=== PATIENT | female | born 1965 ===

== ENCOUNTER 2016-07-05 14:10 | Emergency (ER) | payer MEDICAID ==
[~2016-07-05] VITALS: Ht 160 cm; Wt 61.4 kg
[2016-07-05 14:13] VITALS: BP 162/98; PULSE 98; RESP 18; O2SAT 97
--- NOTE | 2016-07-05 14:30 | ED.REPORT ---
HPI-Back Pain 40 and Over Date of Service Jul 05, 2016 ED Provider: History of Present Illness: back pain, helping sister move, heard a noise in back, no fall, just lifting [place] needs primary care, hx of back problems. 04/03, can't take any ibuprofen Nursing Notes Stated Complaint: BACK/HIP PAIN Chief Complaint: Back Pain or Injury Allergies: Coded Allergies: ibuprofen (Verified Allergy, Intermediate, SWELLING, 07/05/16) Penicillins (Verified Allergy, Mild, RASH, 07/05/16) General Time Seen by MD: 14:30 Chief Complaint Lumbar pain Hx Obtained From: Patient Sudden in Onset?: Yes Past Medical History Past Medical History Denies: Asthma, Diabetes mellitus Past Surgical History denies Smoking History Current Every Day Smoker (2 cig a day for 35 years) Social History Alcohol Use: Denies alcohol use Drug Use: Denies drug use Occupation no work or school at this time 07/05/2016 Review of Systems Basic Review of Systems Eyes: Vision NL, No discharge ENT: Hearing NL, No pain, No nasal congestion, No pharyngeal pain Hematologic: No bleeding, No bruising Endocrine: No cold intolerance, No heat intolerance, No weight gain, No weight loss Skin: No bruising, No rash, No itch Allergy / Immune: No allergy Psychiatric: Normal thought content Physical Exam Initial Vital Signs Vital Signs (First) Date Time Temp Pulse Resp B/P Pulse Ox O2 Delivery O2 Flow Rate FiO2 07/05/16 14:13 37.2 98 18 162/98 97 Room Air Initial VS: Reviewed, Vital signs normal Head / Eyes: Atraumatic, Normocephalic, PERRL ENT: Mucous membranes moist, Conjunctiva normal, No scleral icterus Neck: Supple, Non-tender, Full range of motion Lymphatic: No lymphadenopathy Extremities: Vascular intact, Neuro intact, No swelling, No tenderness Skin: Warm, Dry, No cyanosis Psychiatric: Mood/affect normal, Behavior normal, Normal thought content General/Constitutional: Awake, Alert, No acute distress, Well appearing, Well developed, Well hydrated Respiratory / Chest: Atraumatic, Breath sounds NL, Breath sounds = bilat, No respiratory distress Cardiovascular: Heart rate NL, Regular rhythm, Heart sounds NL, No gallop Abdomen: Atraumatic, Soft, Non-tender Back: Atraumatic, Inspection NL, Full range of motion, Painless range of motion Neurologic: Oriented X3, Speech NL, No motor deficits, No sensory deficits, CN II - XII intact, Reflexes equal bilat, Cerebellar NL, Memory NL, Gait NL Lower Extremity / Pelvis / MS: Atraumatic, Inspection NL, Full range of motion , No swelling, Non-tender, No erythema Re-Eval/Medical Decision Med Decision/Clinical Course review of [employer] indicates last visist was 06/02/2016 at [facility] from [facility]12 vicodin. Advised patient she will need to establish in primary care. [employer] shows 6 visits with 6 disfferent providers all for vicodin Discharge & Departure Impression: Primary Impression: Low back pain Chronicity: chronic Back pain laterality: unspecified Disposition: Home Patient Instructions: Acute Low Back Pain (ED) Additional Instructions: The exam is reassuring. You have been started on decadron 10 mg daily for 5 days. Can use hydrocodone 1 at night as needed for severe unrelenting pain. #6. Can use visteral 50 mg to help with muscle relaxation. Need to establish in primary care, consider the residency clinic. Referrals: [facility] EDSupervising Provider for APC: Gina Heard MD copies to: [facility] Linette Pardo Jul 05, 2016 14:30
[2016-07-05 14:54] VITALS: BP 141/96; PULSE 100; RESP 16
== END 2016-07-05 14:55 | disposition home or self-care (01) ==
LOC: SED 14:10
DX: M54.5 Low back pain (principal); X50.3XXA Overexertion from repetitive movements, initial encounter; Y93.E6 Activity, residential relocation; Y99.8 Other external cause status; Y92.019 Unspecified place in single-family (private) house as the place of occurrence of the external cause; F17.210 Nicotine dependence, cigarettes, uncomplicated; Z88.6 Allergy status to analgesic agent; Z88.0 Allergy status to penicillin